=== PATIENT | female | born 1990 | race Caucasian/White ===

== ENCOUNTER 2019-07-13 05:23 | Inpatient (IN) | payer BC ==
[2019-07-13] MEDS ORDERED: Sodium Chloride 0.9% 10 ML SDV IV PRN (05:50)
[2019-07-13] MEDS ORDERED: Sodium Chloride 0.9% 2.5 ML Syringe FLUSH PRN (05:50)
[2019-07-13] MEDS ORDERED: Azithromycin 500 MG in Sodium Chloride 0.9% 250 ML IV ONE ×2 (05:50→08:00)
[2019-07-13] MEDS ORDERED: Citric Acid/Sodium Citrate Solution 30 ML Cup PO ONE (05:50)
[2019-07-13] MEDS: Lactated Ringers 1,000 ML IV SCH ×3 (05:50→12:02)
[2019-07-13] MEDS ORDERED: Sodium Chloride 0.9% 10 ML Syringe FLUSH PRN (05:50)
[2019-07-13] MEDS ORDERED: Oxytocin/0.9 % Sodium Chloride 30 UNIT/500 ML BAG IV SCH (06:00)
[2019-07-13] MEDS ORDERED: Phenylephrine 1% 10 MG/ML SDV ONE (07:39)
[2019-07-13] MEDS ORDERED: Morphine PF 10 MG/10 ML SDV ONE (07:39)
[2019-07-13] MEDS ORDERED: Ondansetron 4 MG/2 ML SDV ONE (07:39)
[2019-07-13] MEDS ORDERED: Octyl 2-Cyanoacrylate 1 Tube ONE (07:42)
--- NOTE | 2019-07-13 07:48 | PCM.PREANE ---
Preanesthetic Assessment - Anesthesia/Transfusion/Family Hx Anesthesia History: Prior Anesthesia Without Reaction Other Type of Anesthesia Reaction Comment: Denies any problem in past, 'my mother gets loopy' Family History of Anesthesia Reaction: No Transfusion History: No Prior Transfusion(s) - Review of Systems General: No Symptoms Pulmonary: No Symptoms Cardiovascular: No Symptoms Gastrointestinal: No Symptoms Neurological: No Symptoms - Physical Assessment NPO Status Date: 07/12/19 Height: 5 ft 4 in Weight: 110.223 kg ASA Class: 2 Mental Status: Alert & Oriented x3 Airway Class: Mallampati = 2 Dentition: Reports: Normal Dentition ROM/Head Extension: Full Lungs: Clear to Auscultation, Normal Respiratory Effort Cardiovascular: Regular Rate, Regular Rhythm - Lab Values: Laboratory Last Values WBC 7.04 K/uL (4.0-11.0) 07/13/19 06:10 RBC 4.13 M/uL (4.30-5.90) L 07/13/19 06:10 Hgb 11.4 g/dL (12.0-16.0) L 07/13/19 06:10 Hct 35.9 % (36.0-46.0) L 07/13/19 06:10 MCV 86.9 fL (80.0-98.0) 07/13/19 06:10 MCH 27.6 pg (27.0-32.0) 07/13/19 06:10 MCHC 31.8 g/dL (31.0-37.0) 07/13/19 06:10 RDW Std Deviation 61.1 fl (28.0-62.0) 07/13/19 06:10 RDW Coeff of Josh 19 % (11.0-15.0) H 07/13/19 06:10 Plt Count 131 K/uL (150-400) L 07/13/19 06:10 MPV 10.00 fL (7.40-12.00) 07/13/19 06:10 Nucleated RBC % 0.0 /100WBC 07/13/19 06:10 Nucleated RBCs # 0 K/uL 07/13/19 06:10 Blood Type B POSITIVE 07/13/19 06:10 Antibody Screen NEGATIVE 07/13/19 06:10 - Allergies Allergies/Adverse Reactions: Allergies Allergy/AdvReac Type Severity Reaction Status Date / Time amoxicillin [Amoxicillin] Allergy Rash Verified 07/13/19 05:50 cefaclor [From Ceclor] Allergy Rash Verified 07/13/19 05:50 clindamycin Allergy Diarrhea Verified 07/13/19 05:50 - Blood Blood Available: No - Anesthesia Plan Pre-Op Medication Ordered: None - Acknowledgements Anesthesia Type Planned: Spinal Pt an Appropriate Candidate for the Planned Anesthesia: Yes Alternatives and Risks of Anesthesia Discussed w Pt/Guardian: Yes Pt/Guardian Understands and Agrees with Anesthesia Plan: Yes Additional Comments: PMH: repeat c section PLAN: spinal with duramorph PreAnesthesia Questionnaire HEENT History: Reports: Other (See Below) Other HEENT History: wears contacts/glasses Cardiovascular History: Reports: None Respiratory History: Reports: None Gastrointestinal History: Reports: GERD Genitourinary History: Reports: None BULB FILLER History: Reports: Other OB/BYN History: LMP 08/12/14, 2 Para 1 Musculoskeletal History: Reports: None Neurological History: Reports: None Psychiatric History: Reports: Anxiety, Depression Endocrine/Metabolic History: Reports: Hypothyroidism, Obesity/BMI 30+ Hematologic History: Reports: None Immunologic History: Reports: None Oncologic (Cancer) History: Reports: None Dermatologic History: Reports: None - Past Surgical History Head Surgeries/Procedures: Reports: None HEENT Surgical History: Reports: Oral Surgery Cardiovascular Surgical History: Reports: None Respiratory Surgical History: Reports: None GI Surgical History: Reports: Cholecystectomy Female Surgical History: Reports: Section Endocrine Surgical History: Reports: None Neurological Surgical History: Reports: None Musculoskeletal Surgical History: Reports: None Oncologic Surgical History: Reports: None Dermatological Surgical History: Reports: None - SUBSTANCE USE Smoking Status *Q: Never Smoker Recreational Drug Use History: No - HOME MEDS Home Medications: Home Meds Levothyroxine Sodium [Synthroid] 25 mcg PO DAILY 05/18/15 [History] Vit No.78/Iron/Fa [Prenatabs FA] 1 tab PO DAILY 05/18/15 [History] Citalopram [Citalopram HBr] 20 mg PO DAILY 07/07/19 [History] Omeprazole 20 mg PO DAILY 07/07/19 [History] buPROPion HCl [Wellbutrin SR] 150 mg PO DAILY 07/07/19 [History] - CURRENT (IN HOUSE) MEDS Current Meds: Current Medications Lactated Ringer's (Ringers, Lactated) 1,000 mls @ 500 mls/hr IV BOLUS [facility] Last Admin: 07/13/19 06:54 Dose: 500 mls/hr Oxytocin/Sodium Chloride (Oxytocin 30 Unit/500 Ml-Ns) 30 unit in 500 mls @ 250 mls/hr IV TITRATE [facility] Sodium Chloride (Saline Flush) 10 ml FLUSH ASDIRECTED PRN PRN Reason: Keep Vein Open Sodium Chloride (Saline Flush) 2.5 ml FLUSH ASDIRECTED PRN PRN Reason: Keep Vein Open Sodium Chloride (Normal Saline) 10 ml IV ASDIRECTED PRN PRN Reason: IV Use Discontinued Medications Citric Acid/Sodium Citrate (Bicitra Solution) 30 ml PO ONETIME ONE Stop: 07/13/19 05:51 Azithromycin 500 mg/ Sodium (Chloride) 250 mls @ 250 mls/hr IV ONETIME ONE Stop: 07/13/19 06:49 Morphine Sulfate (Duramorph Pf) Confirm Administered Dose 10 mg .ROUTE .STK-MED ONE Stop: 07/13/19 07:40 Octyl Cyanoacrylate (Dermabond Advance) Confirm Administered Dose 1 applic .ROUTE .STK-MED ONE Stop: 07/13/19 07:43 Ondansetron HCl (Zofran) Confirm Administered Dose 4 mg .ROUTE .STK-MED ONE Stop: 07/13/19 07:40 Phenylephrine HCl (Grayson-Synephrine) Confirm Administered Dose 10 mg .ROUTE .STK- MED ONE Stop: 07/13/19 07:40
[2019-07-13] MEDS ORDERED: Acetaminophen/oxyCODONE 325-5 MG Tab PO PRN (07:49)
[2019-07-13] MEDS ORDERED: fentaNYL 100 MCG/2 ML SDV IVPUSH PRN (07:49)
[2019-07-13] MEDS ORDERED: Ketorolac 30 MG/ML SDV ONE (09:13)
[2019-07-13] MEDS ORDERED: Lanolin 100% Cream 7 GM Tube TOP PRN (09:33)
[2019-07-13] MEDS ORDERED: Oxytocin 10 Units/1 ML SDV IM PRN (09:33)
[2019-07-13] MEDS ORDERED: Bisacodyl 10 MG Supp RECTAL PRN (09:33)
[2019-07-13] MEDS ORDERED: Methylergonovine 0.2 MG/1 ML Amp IM PRN (09:33)
[2019-07-13] MEDS ORDERED: Ondansetron 4 MG/2 ML SDV IVPUSH PRN (09:33)
[2019-07-13] MEDS ORDERED: diphenhydrAMINE 50 MG/ML SDV IVPUSH PRN (09:33)
[2019-07-13] MEDS ORDERED: Tranexamic Acid 1,000 MG in Sodium Chloride 0.9% 100 ML IV PRN (09:33)
[2019-07-13] MEDS ORDERED: Misoprostol 200 MCG Tab RECTAL PRN (09:33)
[2019-07-13] MEDS ORDERED: Ibuprofen 800 MG Tab PO PRN (09:33)
--- NOTE | 2019-07-13 09:33 | PCM.OPNOTE ---
- General Post-Op/Procedure Note Date of Surgery/Procedure: 07/13/19 Operative Procedure(s): repeat low transverse Findings: liveborn female 8/9 weight 7#1oz, normal pelvis, single umbilical artery Pre Op Diagnosis: 39 weeks previous , desires repeat Post-Op Diagnosis: Same Anesthesia Technique: Spinal Primary Surgeon: Jesica Nava Secondary Surgeon: Jennifer Casanova Anesthesia Provider: [address] Community Support Associate: Malyin Beth Pathology: placenta to pathology. EBL in mLs: 300 Complications: None known Condition: Good
[2019-07-13] MEDS ORDERED: Oxytocin/Lactated Ringers 30 UNIT/500 ML BAG IV SCH (09:45)
--- NOTE | 2019-07-13 10:14 | PCM.POSTAN ---
POST ANESTHESIA ASSESSMENT - MENTAL STATUS Mental Status: Alert, Oriented - RESPIRATORY Respiratory Status: Respiratory Rate WNL, Airway Patent, O2 Saturation Stable - CARDIOVASCULAR CV Status: Pulse Rate WNL, Blood Pressure Stable - GASTROINTESTINAL GI Status: No Symptoms - PAIN Pain Score: 0 - POST OP HYDRATION Hydration Status: Adequate & Stable
--- NOTE | 2019-07-13 10:51 | OR ---
SURGEON: Jesica Nava M.D. DATE OF PROCEDURE: 07/13/2019 PREOPERATIVE DIAGNOSES: 39+ week intrauterine , prior delivery, declines vaginal trial of labor. POSTOPERATIVE DIAGNOSES: 39+ week intrauterine , prior delivery, declines vaginal trial of labor. PROCEDURE: Repeat low transverse section. PRIMARY SURGEON: Jesica Nava M.D. AUTO BODY ESTIMATOR: Jennifer Casanova MD ANESTHESIA: Spinal. ESTIMATED BLOOD LOSS: Less than 300 mL, FINDINGS: Liveborn female. scores 8 and 9. Weighing 7 pounds 1 ounce. Normal- appearing uterus, tubes, and ovaries. Single umbilical artery noted. COMPLICATIONS: None known. DISPOSITION: Stable to Recovery. BRIEF HISTORY: This is a 29-year-old female. She is G3, P2 with 2 prior deliveries. She presents at 39 weeks' gestation for repeat delivery with risks discussed including bleeding; infection; injury to bowel, bladder, blood vessels, or other organs; risk of thromboembolic event; risk of anesthesia. Understanding all these risks, she does desire to proceed. DESCRIPTION OF PROCEDURE: With the patient in left tilt position, under adequate spinal analgesia, the abdomen was prepped with chlorhexidine and draped in the usual fashion for abdominal surgery. SCDs were in place. Humphries catheter had been placed and an appropriate time-out was held. After the abdomen was appropriately prepped and draped and documentation of adequate analgesia was performed, the prior cicatrix was excised making a transverse curvilinear incision cephalad from the pubic symphysis. This incision was carried through the subcutaneous tissue to the fascia, which was scored transversely in the midline. The fascial incision was extended laterally using curved Cabrera scissors. The fascia was elevated from the underlying rectus muscle using sharp and blunt dissection. The rectus muscles were then bluntly in the midline and using Cabrera scissors to extend the incision cephalad and caudad along with blunt dissection. The Tony O C- section retractor was placed. The visceroperitoneum over the lower uterine segment was incised to develop an adequate bladder flap. A transverse curvilinear incision was made over the lower uterine segment with a scalpel and the incision was extended using blunt dissection. Amniotic membranes were ruptured. Meconium fluid was noted. The head was delivered via the uterine incision. Nuchal cord was noted and reduced. The infant was copiously suctioned due to the meconium just with bulb suction and the face was wiped. The anterior and posterior shoulders were delivered. The cord was then noted to be wrapped completely around the infant's body, was reduced, and after 1 minute, the cord was doubly clamped and cut and the infant was handed to the nurse in attendance at delivery. The infant is a liveborn female. scores 8 and 9. Weight of 7 pounds 1 ounce. The cord blood was collected for cord ABGs as well as routine cord blood sampling. The placenta was removed by manual expression and the uterus was cleaned with a dry laparotomy tape. The cervix was opened with the ring forceps. The uterine incision was closed with a running locking suture of 0 Polysorb followed by an imbricating layer of 0 Polysorb. The tubes and ovaries were inspected and appeared normal. The uterine incision was inspected and was completely hemostatic. Therefore, the Tony O retractor was removed, and using a bladder blade, the incision was inspected one additional time and was completely hemostatic. Therefore, the rectus muscle and peritoneum were loosely approximated in the midline using a running mattress suture of 0 Polysorb. The posterior aspect of the fascia was inspected and was hemostatic. The fascial incision was closed with a running suture of 0 Polysorb. Subcutaneous tissue was irrigated. Any areas of bleeding that were noted were cauterized. Subcutaneous tissue was reapproximated using 3-0 plain followed by a subcuticular suture of 3-0 Monocryl. Final sponge, needle, and instrument counts were reported as correct. The incision was also covered with Dermabond before dressing. There were no known complications. Specimen is placenta to Pathology. The patient was transferred to Recovery in good condition. DANIELA / LEW /[id number]
[2019-07-13] MEDS: Nalbuphine 10 MG/1 ML Vial IVPUSH PRN ×2 (14:30→19:57)
[2019-07-13] MEDS: Ketorolac 30 MG/ML SDV IVPUSH SCH ×2 (15:50→21:38)
[2019-07-13] MEDS: Docusate Sodium 100 MG Cap PO SCH (21:39)
[2019-07-14] MEDS: Lactated Ringers 1,000 ML IV SCH (00:58)
[2019-07-14] MEDS: Nalbuphine 10 MG/1 ML Vial IVPUSH PRN (01:07)
[2019-07-14] MEDS: Ketorolac 30 MG/ML SDV IVPUSH SCH ×3 (03:25→16:39)
--- NOTE | 2019-07-14 07:31 | PCM48HPAN ---
Post Anesthesia Note - EVALUATION WITHIN 48HRS OF ANESTHETIC Vital Signs in Normal Range: Yes Patient Participated in Evaluation: Yes Respiratory Function Stable: Yes Airway Patent: Yes Cardiovascular Function Stable: Yes Hydration Status Stable: Yes Pain Control Satisfactory: Yes Nausea and Vomiting Control Satisfactory: Yes Mental Status Recovered: Yes Vital Signs: Last Vital Signs Temp 36.3 C 07/14/19 00:00 Pulse 89 07/14/19 07:00 Resp 16 07/14/19 07:00 BP 110/56 L 07/14/19 05:51 Pulse Ox 96 07/14/19 07:00
[2019-07-14] MEDS: Omeprazole 20 MG Cap.CR PO SCH (09:27)
[2019-07-14] MEDS: buPROPion 150 MG Tab.SR PO SCH (09:28)
[2019-07-14] MEDS: Levothyroxine 25 MCG Tab PO SCH (09:28)
[2019-07-14] MEDS: Docusate Sodium 100 MG Cap PO SCH ×2 (09:29→21:37)
--- NOTE | 2019-07-14 11:13 | PCM.PNPP ---
- General Info Date of Service: 07/14/19 Functional Status: Reports: Pain Controlled, Tolerating Diet, Ambulating, Urinating - Review of Systems General: Reports: No Symptoms HEENT: Reports: No Symptoms Pulmonary: Reports: No Symptoms Cardiovascular: Reports: No Symptoms Gastrointestinal: Reports: No Symptoms Genitourinary: Reports: No Symptoms Musculoskeletal: Reports: No Symptoms Skin: Reports: No Symptoms Neurological: Reports: No Symptoms Psychiatric: Reports: No Symptoms - General Info Date of Service: 07/14/19 - Patient Data Vital Signs - Most Recent: Last Vital Signs Temp 36.3 C 07/14/19 00:00 Pulse 89 07/14/19 07:00 Resp 16 07/14/19 07:00 BP 110/56 L 07/14/19 05:51 Pulse Ox 96 07/14/19 07:00 Weight - Most Recent: 110.223 kg I&O - Last 24 Hours: Intake & Output 07/13/19 07/14/19 07/14/19 22:59 06:59 14:59 Intake Total 523 Output Total 715 350 Balance -192 -350 Lab Results - Last 24 Hours: Laboratory Results - last 24 hr 07/14/19 Range/Units 05:55 Hgb 10.5 L (12.0-16.0) g/dL Hct 32.6 L (36.0-46.0) % Med Orders - Current: Current Medications Bisacodyl (Dulcolax) 10 mg RECTAL ONETIME PRN PRN Reason: Constipation Bupropion HCl (Wellbutrin Sr) 150 mg PO DAILY [facility] Last Admin: 07/14/19 09:28 Dose: 150 mg Citalopram Hydrobromide (Celexa) 20 mg PO DAILY [facility] Diphenhydramine HCl (Benadryl) 25 mg IVPUSH Q6H PRN PRN Reason: Itching or Nausea Docusate Sodium (Colace) 100 mg PO BID [facility] Last Admin: 07/14/19 09:29 Dose: 100 mg Emollient Ointment (Lansinoh Hpa) 0 gm TOP ASDIRECTED PRN PRN Reason: Sore Nipples Lactated Ringer's (Ringers, Lactated) 1,000 mls @ 500 mls/hr IV BOLUS [facility] Last Admin: 07/13/19 06:54 Dose: 500 mls/hr Oxytocin/Sodium Chloride (Oxytocin 30 Unit/500 Ml-Ns) 30 unit in 500 mls @ 250 mls/hr IV TITRATE [facility] Lactated Ringer's (Ringers, Lactated) 1,000 mls @ 125 mls/hr IV ASDIRECTED [facility] Last Admin: 07/14/19 00:58 Dose: 125 mls/hr Oxytocin/Lactated Ringer's (Pitocin In Lr 30 Units/500 Ml) 30 unit in 500 mls @ 999 mls/hr IV TITRATE [facility]; Protocol Tranexamic Acid 1,000 mg/ (Sodium Chloride) 110 mls @ 660 mls/hr IV ONETIME PRN PRN Reason: Bleeding Ibuprofen (Motrin) 800 mg PO Q8H PRN PRN Reason: mild pain or fever Levothyroxine Sodium (Levothyroxine) 25 mcg PO DAILY [facility] Last Admin: 07/14/19 09:28 Dose: 25 mcg Methylergonovine Maleate (Methergine) 0.2 mg IM ONETIME PRN PRN Reason: Excessive Vaginal Bleeding Misoprostol (Cytotec) 1,000 mcg RECTAL ONETIME PRN PRN Reason: excessive bleeding Non-Formulary Medication ( Vit No.78/Iron/Fa [Prenatabs Fa]) 1 tab PO DAILY [facility] Omeprazole (Omeprazole) 20 mg PO DAILY [facility] Last Admin: 07/14/19 09:27 Dose: 20 mg Ondansetron HCl (Zofran) 4 mg IVPUSH Q4H PRN PRN Reason: Nausea/Vomiting Oxycodone/Acetaminophen (Percocet 325-5 Mg) 1 tab PO ONETIME PRN PRN Reason: Pain (moderate 4-6) Oxycodone/Acetaminophen (Percocet 325-5 Mg) 1 tab PO Q4H PRN PRN Reason: Pain (moderate 4-6) Oxycodone/Acetaminophen (Percocet 325-5 Mg) 2 tab PO Q4H PRN PRN Reason: Pain (moderate 4-6) Oxytocin (Pitocin) 10 unit IM ASDIRECTED PRN PRN Reason: Excessive Vaginal Bleeding Sodium Chloride (Saline Flush) 10 ml FLUSH ASDIRECTED PRN PRN Reason: Keep Vein Open Sodium Chloride (Saline Flush) 2.5 ml FLUSH ASDIRECTED PRN PRN Reason: Keep Vein Open Sodium Chloride (Normal Saline) 10 ml IV ASDIRECTED PRN PRN Reason: IV Use Discontinued Medications Citric Acid/Sodium Citrate (Bicitra Solution) 30 ml PO ONETIME ONE Stop: 07/13/19 05:51 Fentanyl (Sublimaze) 50 mcg IVPUSH Q5M PRN PRN Reason: Pain (severe 7-10) Stop: 07/14/19 07:49 Azithromycin 500 mg/ Sodium (Chloride) 250 mls @ 250 mls/hr IV ONETIME ONE Stop: 07/13/19 06:49 Azithromycin 500 mg/ Sodium (Chloride) 250 mls @ 250 mls/hr IV ONETIME ONE Stop: 07/13/19 08:59 Ketorolac Tromethamine (Toradol) Confirm Administered Dose 30 mg .ROUTE .STK- MED ONE Stop: 07/13/19 09:14 Ketorolac Tromethamine (Toradol) 30 mg IVPUSH Q6H [facility] Stop: 07/14/19 09:46 Last Admin: 07/14/19 09:30 Dose: 30 mg Morphine Sulfate (Duramorph Pf) Confirm Administered Dose 10 mg .ROUTE .STK-MED ONE Stop: 07/13/19 07:40 Nalbuphine HCl (Nubain) 2.5 mg IVPUSH Q3H PRN PRN Reason: Pruritis Stop: 07/14/19 07:49 Last Admin: 07/14/19 01:07 Dose: 2.5 mg Octyl Cyanoacrylate (Dermabond Advance) Confirm Administered Dose 1 applic .ROUTE .STK-MED ONE Stop: 07/13/19 07:43 Ondansetron HCl (Zofran) Confirm Administered Dose 4 mg .ROUTE .STK-MED ONE Stop: 07/13/19 07:40 Phenylephrine HCl (Grayson-Synephrine) Confirm Administered Dose 10 mg .ROUTE .STK- MED ONE Stop: 07/13/19 07:40 - Infant Interaction Infant Disposition, : [place] to Nursery Infant Feeding: Breastfed Infant; Nursed Well Support Person: - Recovery Exam Fundal Tone: Firm Fundal Level: 1 Fingerbreadths Below Umbilicus Fundal Placement: Midline Lochia Amount: Scant Lochia Color: Rubra/Red Perineum Description: Intact, Minimal Bruising/Swelling Episiotomy/Laceration: None Bladder Status: Indwelling Catheter in Place Urinary Elimination: Indwelling Catheter - Exam General: Alert Neck: Supple Lungs: Normal Respiratory Effort GI/Abdominal Exam: Soft, Non-Tender, No Distention Extremities: Normal Inspection, Non-Tender. No: No Pedal Edema (trace) Skin: Warm, Dry, Intact Wound/Incisions: Healing Well Neurological: No New Focal Deficit - Problem List & Annotations (1) section SNOMED Code(s): 98003439 - section Status: Acute Current Visit: No (2) Previous delivery, delivered SNOMED Code(s): 594874942, 825190355 Code(s): O34.21 - MATERNAL CARE FOR SCAR FROM PREVIOUS * DO NOT USE * Status: Acute Current Visit: No - Problem List Review Problem List Initiated/Reviewed/Updated: Yes - My Orders Last 24 Hours: My Active Orders 07/13/19 21:00 Docusate Sodium [Colace] 100 mg PO BID 07/13/19 Lunch Regular Diet [DIET] 07/14/19 09:00 Citalopram [Celexa] 20 mg PO DAILY Levothyroxine 25 mcg PO DAILY Omeprazole 20 mg PO DAILY Vit No.78/Iron/Fa [Prenatabs FA] 1 tab PO DAILY buPROPion [Wellbutrin SR] 150 mg PO DAILY - Assessment Assessment:: POD#1 after repeat . Stable, minimal lochia, tolerating diet and has voided. well. Continue postop care. Depression and anxiety during . Right now mood is stable on medications, needs refill on excitalopram 20 mg. - Plan Plan:: Continue postop care, no ibuprofen due to COVID risk and prior bariatric surgery. Will refill escitalopram. She should call with concerns regarding mood after discharge, may also need to go up on Wellbutrin.
[2019-07-14] MEDS: Acetaminophen/oxyCODONE 325-5 MG Tab PO PRN ×3 (12:22→21:37)
[2019-07-14] MEDS: Citalopram 20 MG Tab PO SCH (16:39)
[2019-07-14] MEDS: [UNRECOGNIZED DRUG - REMARK] PO SCH (16:39)
[2019-07-15] MEDS: Acetaminophen/oxyCODONE 325-5 MG Tab PO PRN ×2 (01:21→08:55)
--- NOTE | 2019-07-15 08:37 | PCM.PNPP ---
- General Info Date of Service: 07/15/19 Functional Status: Reports: Pain Controlled, Tolerating Diet, Ambulating, Urinating - Review of Systems General: Reports: No Symptoms HEENT: Reports: No Symptoms Pulmonary: Reports: No Symptoms Cardiovascular: Reports: No Symptoms Gastrointestinal: Reports: No Symptoms Genitourinary: Reports: No Symptoms Musculoskeletal: Reports: No Symptoms Skin: Reports: No Symptoms Neurological: Reports: No Symptoms Psychiatric: Reports: No Symptoms - General Info Date of Service: 07/15/19 - Patient Data Vital Signs - Most Recent: Last Vital Signs Temp 36.4 C 07/15/19 04:15 Pulse 72 07/15/19 04:15 Resp 14 07/15/19 04:15 BP 103/56 L 07/15/19 04:15 Pulse Ox 99 07/15/19 04:15 Weight - Most Recent: 110.223 kg Med Orders - Current: Current Medications Bisacodyl (Dulcolax) 10 mg RECTAL ONETIME PRN PRN Reason: Constipation Bupropion HCl (Wellbutrin Sr) 150 mg PO DAILY [facility] Last Admin: 07/14/19 09:28 Dose: 150 mg Citalopram Hydrobromide (Celexa) 20 mg PO DAILY [facility] Last Admin: 07/14/19 16:39 Dose: Not Given Diphenhydramine HCl (Benadryl) 25 mg IVPUSH Q6H PRN PRN Reason: Itching or Nausea Docusate Sodium (Colace) 100 mg PO BID [facility] Last Admin: 07/14/19 21:37 Dose: 100 mg Emollient Ointment (Lansinoh Hpa) 0 gm TOP ASDIRECTED PRN PRN Reason: Sore Nipples Lactated Ringer's (Ringers, Lactated) 1,000 mls @ 500 mls/hr IV BOLUS [facility] Last Admin: 07/13/19 06:54 Dose: 500 mls/hr Oxytocin/Sodium Chloride (Oxytocin 30 Unit/500 Ml-Ns) 30 unit in 500 mls @ 250 mls/hr IV TITRATE [facility] Lactated Ringer's (Ringers, Lactated) 1,000 mls @ 125 mls/hr IV ASDIRECTED [facility] Last Admin: 07/14/19 00:58 Dose: 125 mls/hr Oxytocin/Lactated Ringer's (Pitocin In Lr 30 Units/500 Ml) 30 unit in 500 mls @ 999 mls/hr IV TITRATE [facility]; Protocol Tranexamic Acid 1,000 mg/ (Sodium Chloride) 110 mls @ 660 mls/hr IV ONETIME PRN PRN Reason: Bleeding Ibuprofen (Motrin) 800 mg PO Q8H PRN PRN Reason: mild pain or fever Last Admin: 07/14/19 17:57 Dose: 800 mg Levothyroxine Sodium (Levothyroxine) 25 mcg PO DAILY [facility] Last Admin: 07/14/19 09:28 Dose: 25 mcg Methylergonovine Maleate (Methergine) 0.2 mg IM ONETIME PRN PRN Reason: Excessive Vaginal Bleeding Misoprostol (Cytotec) 1,000 mcg RECTAL ONETIME PRN PRN Reason: excessive bleeding Non-Formulary Medication ( Vit No.78/Iron/Fa [Prenatabs Fa]) 1 tab PO DAILY [facility] Last Admin: 07/14/19 16:39 Dose: Not Given Omeprazole (Omeprazole) 20 mg PO DAILY [facility] Last Admin: 07/14/19 09:27 Dose: 20 mg Ondansetron HCl (Zofran) 4 mg IVPUSH Q4H PRN PRN Reason: Nausea/Vomiting Oxycodone/Acetaminophen (Percocet 325-5 Mg) 1 tab PO ONETIME PRN PRN Reason: Pain (moderate 4-6) Oxycodone/Acetaminophen (Percocet 325-5 Mg) 1 tab PO Q4H PRN PRN Reason: Pain (moderate 4-6) Last Admin: 07/14/19 15:07 Dose: 1 tab Oxycodone/Acetaminophen (Percocet 325-5 Mg) 2 tab PO Q4H PRN PRN Reason: Pain (moderate 4-6) Last Admin: 07/15/19 01:21 Dose: 2 tab Oxytocin (Pitocin) 10 unit IM ASDIRECTED PRN PRN Reason: Excessive Vaginal Bleeding Sodium Chloride (Saline Flush) 10 ml FLUSH ASDIRECTED PRN PRN Reason: Keep Vein Open Sodium Chloride (Saline Flush) 2.5 ml FLUSH ASDIRECTED PRN PRN Reason: Keep Vein Open Sodium Chloride (Normal Saline) 10 ml IV ASDIRECTED PRN PRN Reason: IV Use Discontinued Medications Citric Acid/Sodium Citrate (Bicitra Solution) 30 ml PO ONETIME ONE Stop: 07/13/19 05:51 Fentanyl (Sublimaze) 50 mcg IVPUSH Q5M PRN PRN Reason: Pain (severe 7-10) Stop: 07/14/19 07:49 Azithromycin 500 mg/ Sodium (Chloride) 250 mls @ 250 mls/hr IV ONETIME ONE Stop: 07/13/19 06:49 Azithromycin 500 mg/ Sodium (Chloride) 250 mls @ 250 mls/hr IV ONETIME ONE Stop: 07/13/19 08:59 Last Admin: 07/14/19 15:50 Dose: Not Given Ketorolac Tromethamine (Toradol) Confirm Administered Dose 30 mg .ROUTE .STK- MED ONE Stop: 07/13/19 09:14 Ketorolac Tromethamine (Toradol) 30 mg IVPUSH Q6H [facility] Stop: 07/14/19 09:46 Last Admin: 07/14/19 16:39 Dose: Not Given Morphine Sulfate (Duramorph Pf) Confirm Administered Dose 10 mg .ROUTE .STK-MED ONE Stop: 07/13/19 07:40 Nalbuphine HCl (Nubain) 2.5 mg IVPUSH Q3H PRN PRN Reason: Pruritis Stop: 07/14/19 07:49 Last Admin: 07/14/19 01:07 Dose: 2.5 mg Octyl Cyanoacrylate (Dermabond Advance) Confirm Administered Dose 1 applic .ROUTE .STK-MED ONE Stop: 07/13/19 07:43 Last Admin: 07/14/19 15:49 Dose: Not Given Ondansetron HCl (Zofran) Confirm Administered Dose 4 mg .ROUTE .STK-MED ONE Stop: 07/13/19 07:40 Phenylephrine HCl ([place]ayson-Synephrine) Confirm Administered Dose 10 mg .ROUTE .STK- MED ONE Stop: 07/13/19 07:40 - Infant Interaction Infant Disposition, : [place] to Nursery Feeding: Breastfed ; Nursed Well Support Person: - Recovery Exam Fundal Tone: Firm Fundal Level: 1 Fingerbreadths Below Umbilicus Fundal Placement: Midline Lochia Amount: Scant Lochia Color: Rubra/Red Perineum Description: Intact, Minimal Bruising/Swelling Episiotomy/Laceration: None Bladder Status: Voiding Urinary Elimination: Voided - Exam General: Alert, Oriented HEENT: Pupils Equal Neck: Supple Lungs: Normal Respiratory Effort GI/Abdominal Exam: Soft, Non-Tender, No Organomegaly, No Distention Extremities: Normal Inspection, Non-Tender, No Pedal Edema Skin: Warm, Dry, Intact Wound/Incisions: Healing Well Neurological: No New Focal Deficit Psy/Mental Status: Alert, Normal Affect, Normal Mood - Problem List & Annotations (1) section SNOMED Code(s): 20130414 - section Status: Acute Current Visit: No (2) Previous delivery, delivered SNOMED Code(s): 897010148, 761620300 Code(s): O34.21 - MATERNAL CARE FOR SCAR FROM PREVIOUS * DO NOT USE * Status: Acute Current Visit: No - Problem List Review Problem List Initiated/Reviewed/Updated: Yes - My Orders Last 24 Hours: My Active Orders 07/13/ 09:00 Citalopram [Celexa] 20 mg PO DAILY Levothyroxine 25 mcg PO DAILY Omeprazole 20 mg PO DAILY Vit No.78/Iron/Fa [Prenatabs FA] 1 tab PO DAILY buPROPion [Wellbutrin SR] 150 mg PO DAILY - Assessment Assessment:: POD#2 after repeat . Stable, would like to be discharged today. - Plan Plan:: dismiss to home today. discharge instructions reviewed.
[2019-07-15] MEDS: buPROPion 150 MG Tab.SR PO SCH (08:50)
[2019-07-15] MEDS: Levothyroxine 25 MCG Tab PO SCH (08:50)
[2019-07-15] MEDS: Omeprazole 20 MG Cap.CR PO SCH (08:50)
[2019-07-15] MEDS: Docusate Sodium 100 MG Cap PO SCH (08:50)
[2019-07-15] MEDS: [UNRECOGNIZED DRUG - REMARK] PO SCH (08:56)
[2019-07-15] MEDS: Citalopram 20 MG Tab PO SCH (08:56)
[2019-07-15 11:40] VITALS: BP 128/65; PULSE 82
== END 2019-07-15 11:30 | disposition home or self-care (01) | DRG 540 ==
LOC: MW.OB 05:23
PROVIDERS: ADMIT Obstetrics & Gynecology; ATTEND Obstetrics & Gynecology
PROC: 10D00Z1 Extraction of Products of Conception, Low, Open Approach (ICD-10-PCS; principal; 2019-07-13)
DX: O34.211 Maternal care for low transverse scar from previous cesarean delivery (principal); O99.613 Diseases of the digestive system complicating pregnancy, third trimester; O99.283 Endocrine, nutritional and metabolic diseases complicating pregnancy, third trimester; E03.9 Hypothyroidism, unspecified; O99.213 Obesity complicating pregnancy, third trimester; E66.9 Obesity, unspecified; Z3A.39 39 weeks gestation of pregnancy; Z37.0 Single live birth; Z88.1 Allergy status to other antibiotic agents; Z79.899 Other long term (current) drug therapy; K21.9 Gastro-esophageal reflux disease without esophagitis
CPT/HCPCS: 36415; 59025; 82803; 85014; 85018; 85027; 86592; 86593; 86850; 86900; 86901; 88307; A9270-GY; J1885; J2270; J2300; J2370; J2405; J7120